=== PATIENT | male | born 1945 | race Caucasian/White ===

== ENCOUNTER 2017-05-16 08:49 | Outpatient (CLI) | payer MEDICARE ==
[2017-05-16 10:27] LABS: Hemoglobin 14.3 g/dL (14.0-18.0); Mean Corpuscular HGB CONC 32.8 g/dL (32.0-36.0); Mean Corpuscular Hemoglobin 30.7 pg (27.0-31.0); Mean Corpuscular Volume 93.3 fl (80.0-94.0); Mean Platelet Volume 8.7 fL (7.4-10.4); Platelet Count 144 thou/uL (130-400); RBC Distribution Width 12.5 % (11.5-14.5); Red Blood Cell (RBC) Count 4.66 mill/uL (4.70-6.10); White Blood Cell (WBC) Count 5.6 thou/uL (4.8-10.8)
[2017-05-16 10:28] LABS: Bilirubin Negative (Negative); Blood, Urine Negative (Negative); Clarity CLEAR (Clear); Glucose, Urine (Dipstick) Negative (Negative); Leukocyte Negative (Negative); Nitrite Negative (Negative); Protein, Urine (Dipstick) Negative (Neg-Trace); Specific Gravity, Urine 1.014 (1.002-1.036); Urobilinogen 0.2 mg/dL (0.2-1.0); pH, Urine 5.5 (5.0-9.0)
[2017-05-16 10:31] LABS: Bacteria/HPF None Seen HPF (None Seen); Hyaline Casts/LPF 0-3 HYALINE CAST LPF (0-3 Hyaline); RBC/HPF 0-3 HPF (0-3); Squamous Epithelial None Seen HPF (0-3); WBC/HPF None Seen HPF (0-3)
[2017-05-16 10:32] LABS: Prothrombin Time 13.4 SEC (12.0-14.7)
[2017-05-16 10:47] LABS: Anion Gap 11 mmol/L (10-20); BUN (Urea Nitrogen) 22 mg/dL (8.4-25.7); Calc. Creatinine Clearance 0 mL/min (70-130); Calcium 9.5 mg/dL (7.8-10.44); Carbon Dioxide 23 mmol/L (23-31); Chloride 107 mmol/L (98-107); Estimated GFR-MDRD 67; Glucose 112 mg/dL (83-110); Sodium 137 mmol/L (136-145)
--- NOTE | 2017-05-16 11:24 | RAD ---
PA AND LATERAL VIEWS CHEST: Date: 05/16/17 HISTORY: Preoperative evaluation. FINDINGS: Comparison made with exam dated 08/27/14. The heart size is normal. The aorta is tortuous. The lungs are well expanded without focal areas of c onsolidation, pneumothorax, or pleural effusions. Evidence of previous right rotator cuff surgery aga in seen. One of the rotator cuff anchors appears to be dislodged in the joint space. This was also se en on the previous study and is unchanged. There are degenerative changes in the spine. IMPRESSION: No radiographic evidence of acute cardiopulmonary process. POS: [facility]
--- NOTE | 2017-05-29 22:46 | EKG ---
Test Reason : Blood Pressure : / mmHG Vent. Rate : 064 BPM Atrial Rate : 064 BPM P-R Int : 144 ms QRS Dur : 098 ms QT Int : 430 ms P-R-T Axes : 052 000 008 degrees QTc Int : 443 ms Sinus rhythm with Possible Premature atrial complexes with Abberant conduction Cannot rule out Anterior infarct , age undetermined Abnormal ECG When compared with ECG of 31-AUG-2014 09:14, Abberant conduction is now Present Confirmed by Kwadwo ESTEVEZ ([id number]) on 05/29/2017 10:46:24 PM Referred By: LUCRECIA Confirmed By:Kwadwo ESTEVEZ
== END 2017-05-16 08:50 | disposition home or self-care (01) ==
LOC: LABBT 08:49
PROVIDERS: ATTEND Orthopaedic Surgery Hand Surgery
DX: Z01.818 Encounter for other preprocedural examination (principal); M19.132 Post-traumatic osteoarthritis, left wrist
CPT/HCPCS: 71046; 80048; 81001; 85027; 85610; 93005; 93010

== ENCOUNTER 2017-05-21 05:29 | Day surgery (SDC) | payer MEDICARE ==
[2017-05-16 08:57] VITALS: BMI 23.6
[2017-05-21] MEDS ORDERED: Bacitracin Zinc Ointment 30 gm TUBE ONE (06:32)
[2017-05-21] MEDS ORDERED: Bupivacaine PF 0.5% 30 ML VIAL ONE (06:32)
[2017-05-21] MEDS ORDERED: Betamet Acet/Betamet Na Ph 30 MG/5 ML VIAL ONE (06:32)
[2017-05-21] MEDS ORDERED: Fentanyl 100 MCG/2 ML VIAL ONE ×2 (06:49→06:56)
[2017-05-21] MEDS ORDERED: Midazolam HCl 2 mg/2 ml Vial ONE (06:56)
[2017-05-21] MEDS ORDERED: CEFAZOLIN/Water 2 GM/20 ML SYRINGE ONE (07:49)
[2017-05-21] MEDS ORDERED: Bupivacaine HCl 0.5%/Epinephrine 1:200,000/PF 30 ml Vial ONE (11:16)
[2017-05-21] MEDS ORDERED: Lidocaine 1% PF 5 ML VIAL ONE (11:40)
[2017-05-21] MEDS ORDERED: PROPOFOL 200 MG/20 ML VIAL ONE (11:40)
[2017-05-21] MEDS ORDERED: Ondansetron HCl/PF 4 MG/2 ML Vial ONE (11:40)
[2017-05-21] MEDS ORDERED: ePHEDrine/0.9% NaCl/PF SYRINGE 50 mg/10 ml ONE (11:40)
[2017-05-21] MEDS ORDERED: Promethazine HCl 25 MG/ML VIAL ONE (12:49)
--- NOTE | 2017-05-21 13:00 | RAD ---
FLUOROSCOPIC VIEWS LEFT WRIST 4 VIEWS: Date: 05/21/17 HISTORY: Four intraoperative views provided for fixation at level of carpus. FINDINGS: Intraoperative imaging reveals overlying retraction devices and subsequent placement of metallic pins and screws of the carpus. There is a focal lucency of the medial aspect of the carpus indicating seq uelae from partial carpal resection. Correlate with intraoperative assessment. IMPRESSION: Intraoperative views for fixation at the level of the carpus. Dedicated radiographic follow-up would prove useful. POS: [facility]
--- NOTE | 2017-05-21 14:12 | OP ---
DATE OF PROCEDURE: 05/21/2017 PREOPERATIVE DIAGNOSES: Left scapholunate advanced collapse, stage 3. FINDINGS: Scapholunate collapse with almost 1 cm scapholunate gap, very arthritic. Radial scaphoid, scaphocapitate, and even had about 50% chondral loss at the capitate lunate surface and even about 2 0% articular loss at hamate portion of the mid carpal joint. PROCEDURES PERFORMED: 1. Scaphoid excision. 2. Posterior interosseous nerve neurectomy. 3. Four corner arthrodesis (lunatal, capitate, capital, hamate, triquetral, triquetral lunate) arthr odesis. 4. Major bone grafting. 5. C-arm supervision, radiographic time less than 1 minute. SURGEON: El Fishman M.D. INDICATION: The patient with a stage advanced Slac wrist, dorsal instability, marked pain with motio n, failed all conservative treatment. X-ray showed a 1 cm scapholunate gap with complete wear of the radial scaphoid joint and early mid carpal arthritic changes to the point that the capitate did not appear radiographically to have a good chondral surface. TOURNIQUET TIME: 120 minutes. ESTIMATED BLOOD LOSS: Blood loss 25 mL. DESCRIPTION OF PROCEDURE: After successful general LMA technique that augmented with a preoperative axillary block by [place] [employer], the patient had limb prepped and draped. Time out was done ap propriately and the timeout match the planned procedure, site and side and person. We then exsanguinated the limb, inflated the tourniquet to 250 mmHg pressure. Zigzag incision was ma de centered over the third metacarpal to the level of the carpometacarpal joint and as far back proxi bi as 2 cm proximal to the radiocarpal joint. Incision was carried through skin and subcutaneous tissue. I visualized the superficial radial, ulnar and superficial ulnar nerve and protected them th roughout the course of procedure. We then made a zigzag incision in the retinaculum into the third d orsal compartment, entered the third and fourth dorsal compartment interface, retracted the extensor pollicis longus radially, and obviously the fourth dorsal compartment component was then removed. Th e entire postoperative nerve visible from the joint capsule as far proximally could be done. The pos terior interosseous nerve neurectomy for pain relief postop. We then made a large capsular flap that was based ulnarly and left enough for repair including saving the oblique ligament over the intercar pal and mid carpal area. We then visualized the joints and it was here that we saw the scaphoid comp letely denuded articular surface of the radial fossa scaphoid completed denuded articular surface, th e scaphoid capitate region and moderate loss of bone even on both sides of the capital triquetral darcie nt. Thus, it would not be an effective proximal carpectomy with this much chondral loss at the mid c arpal joint. For this reason, we began with a scaphoid excision by placing a 0.062 K-wire and then slowly dissecti ng through a six degree so we could lift it p easily without arterial damage. We then placed a K-wir e in the lunate and started with a more dorsal intercalated stability, and the capitated slid dorsall y so we would have to reduce this as well. We used this as joysticks and began first with a curet an d then with a bur to achieve subchondral bone in all 4 joints to include capitate surface of the capi ken lunate, lunate cervical lunate joint, the capital hamate, the lunate or triquetrum, and the triqu etrum lunate surface. Once these were all done with denuded our cartilage with a curet, then used a bur to achieve excellent bleeding subchondral bone. We then allowed them to be fused in situ except f or in the sagittal plane, we brought the lunate out of marked instability and then tried to alina ter the capitate in the sagittal plane. Once this was done, we took all the bone from the scaphoid, and about 10 mL of cancellous bone chip and crushed them up, mixed them and placed them in the joints and then without compressing the joints, placed 2 K-wires across the capital lunate and the hamate t riquetral area. Bone graft was then placed in all four surfaces while these pins were placed, and th en we placed 4 cannulated screws, 2 from dorsal distal to dorsal proximal across the capital lunate a nd then the hamate triquetral surface and then from the ulnar subcutaneous portion, protecting the gaytan perficial ulnar nerve, we placed 2 screws across the triquetral lunate and the hamate capitate area. We then placed more bone graft, took final x-rays. Removed all the wires except for 1 visual K-wire in the capital lunate was maintained and cut flush with bone. All screws in frontal sagittal plane did not show a dangerous protrusion, but we had excellent bone graft manner and the joints were in si tu in excellent position. Released the tourniquet. We obtained hemostasis. Closed the transverse i ntercarpal ligament area with a running tube with interrupted 2-0 Monocryl and a 2-0 Ethibond, using #1 Ethibond to close the capsular flap that was now on the base, interrupted [id number]. The he mostasis was excellent. We then closed the retinaculum with a 3-0 Monocryl interrupted [id number] ht suture. A 4-0 Monocryl was used for subcutaneous closure. Skin approximated with 4-0 nylon inter rupted simple pattern. Bulky dressing was applied along with a sugar tong splint. The patient left the operating room without evidence of anesthetic or operative complications.
== END 2017-05-21 15:31 | disposition home or self-care (01) ==
LOC: SDC 05:29
PROVIDERS: ATTEND Orthopaedic Surgery Hand Surgery
PROC: 0RGP07Z Fusion of Left Wrist Joint with Autologous Tissue Substitute, Open Approach (ICD-10-PCS; principal; 2017-05-21)
PROC: 0RGP04Z Fusion of Left Wrist Joint with Internal Fixation Device, Open Approach (ICD-10-PCS; 2017-05-21)
PROC: 01B60ZZ Excision of Radial Nerve, Open Approach (ICD-10-PCS; 2017-05-21)
DX: M19.032 Primary osteoarthritis, left wrist (principal); M25.332 Other instability, left wrist; K21.9 Gastro-esophageal reflux disease without esophagitis; E78.5 Hyperlipidemia, unspecified; I25.10 Atherosclerotic heart disease of native coronary artery without angina pectoris; Z79.82 Long term (current) use of aspirin; Z79.899 Other long term (current) drug therapy; Z88.5 Allergy status to narcotic agent; Z98.890 Other specified postprocedural states
CPT/HCPCS: 76001; 96374; C1713; J0670; J0702; J2001; J2250; J2405; J2550; J2704; J3010; S0020